=== PATIENT | female | born 1950 | race Caucasian/White ===

== ENCOUNTER 2020-06-23 17:57 | Emergency (ER) | payer MEDICARE ==
[~2020-06-23] VITALS: Ht 157.5 cm; Wt 68.2 kg
[~2020-06-23 17:57] MED LIST: AMIT50TA3 PO; CHOL10006 PO; DULO60CA65 PO; HYDR50TA65 PO; LANS30CA56 PO; LANTUS SUBCUT; METF500T PO; METO25TA6 PO; PRAV40TA65 PO; VALA500T41 PO; VERA180T PO; VITA-268 PO
[2020-06-23 18:56] VITALS: BP 191/118
== END 2020-06-23 19:30 | disposition home or self-care (01) ==
LOC: ER 17:58
DX: K08.89 Other specified disorders of teeth and supporting structures (principal); E11.42 Type 2 diabetes mellitus with diabetic polyneuropathy; E78.00 Pure hypercholesterolemia, unspecified; I10 Essential (primary) hypertension; K21.9 Gastro-esophageal reflux disease without esophagitis; Z98.890 Other specified postprocedural states; Z79.4 Long term (current) use of insulin; Z79.899 Other long term (current) drug therapy
CPT/HCPCS: 41899; 99281; 99284

== ENCOUNTER 2023-05-12 04:42 | Inpatient (IN) | payer MEDICARE ==
[~2023-05-12] VITALS: Ht 148.6 cm; Wt 60.9 kg
[~2023-05-12 04:42] MED LIST changes: +LOP25T PO; -METO25TA6 PO
[2023-05-12 05:19] LABS: BASOPHILS # (AUTO) 0.1 X10'3 (0-0.2); BASOPHILS % (AUTO) 0.8 % (0-1); EOSINOPHILS # (AUTO) 0.2 X10'3 (0-0.9); EOSINOPHILS % (AUTO) 1.9 % (0-6); HEMOGLOBIN 11.6 g/dl (12.0-16.0); LYMPHOCYTES # (AUTO) 1.8 X10'3 (1.1-4.8); LYMPHOCYTES % (AUTO) 17.5 % (21-51); MEAN CORPUSCULAR HEMOGLOBIN 29.9 PG (27.0-31.0); MEAN CORPUSCULAR HGB CONC 33.1 g/dL (33.0-36.5); MEAN CORPUSCULAR VOLUME 90.5 FL (78-98); MEAN PLATELET VOLUME 7.7 FL (7.4-10.4); MONOCYTES # (AUTO) 0.5 X10'3 (0-0.9); MONOCYTES % (AUTO) 5.1 % (2-12); NEUTROPHILS # (AUTO) 7.8 X10'3 (1.8-7.7); NEUTROPHILS % (AUTO) 74.7 % (42-75); PLATELET COUNT 298 X10'3 (140-440); RED BLOOD COUNT 3.86 X10'6 (4.20-5.60); WHITE BLOOD COUNT 10.5 X10'3 (4.5-11.0)
[2023-05-12 05:38] LABS: ALANINE AMINOTRANSFERASE 22 U/L (12-78); ALBUMIN 3.2 G/DL (3.4-5.0); ALKALINE PHOSPHATASE 90 IU/L (46-116); ANION GAP 8 (8-16); ASPARTATE AMINO TRANSFERASE 16 U/L (10-37); BILIRUBIN,TOTAL 0.6 MG/DL (0.1-1.0); BLOOD UREA NITROGEN 25 MG/DL (7-18); CALCIUM 9.3 MG/DL (8.5-10.1); CHLORIDE 99 MMOL/L (99-107); GLUCOSE 114 MG/DL (70-104); POTASSIUM 5.4 MMOL/L (3.5-5.1); SODIUM 136 MMOL/L (135-145); TOTAL CARBON DIOXIDE 29.3 MMOL/L (24-32); TOTAL PROTEIN 6.3 G/DL (6.4-8.2); eCRCL 35 ML/MIN; eGFR 55 ML/MIN
[2023-05-12 05:45] LABS: PRO BRAIN NATRIURETIC PEPTIDE 479 PG/ML (0-125)
[2023-05-12] MEDS ORDERED: normal saline 1000ml 1,000 ML IV ONE (05:50)
[2023-05-12] MEDS ORDERED: iohexol 350MG/ML 100ml bottle IV ONE (06:08)
--- NOTE | 2023-05-12 06:45 | NUR ---
WOUND PICTURES PLACED IN CHART
--- NOTE | 2023-05-12 07:24 | NUR ---
CT CAME TO TAKE PT, PT CONTS TO HAVE LEG SPASMS UNABLE TO HOLD STILL, MD WAS MADE AWARE. MD DECLINED TO ADMIN ANY MEDICATION AT THIS TIME. CT WILL BE DONE LATER TODAY. MADE AWARE.
--- NOTE | 2023-05-12 07:47 | NUR ---
TELE NEURO CONSULT SUBMITTED BY TON STEWART @ 0529 05/12/2023. *BLUE BARB* P V 72 years old [facility] Created By: [facility] Provider: Lauren Roberts Created at 05/12/2023 - 05:28 Accepted at 05/12/2023 - 05:29
[2023-05-12] MEDS ORDERED: LORazepam 2 mg/ml vial IV ONE (08:05)
--- NOTE | 2023-05-12 09:41 | NUR ---
PT TO CT
[2023-05-12] MEDS: MESSAGE TO NURSING IV SCH (09:50)
[2023-05-12] MEDS ORDERED: LORazepam 2 mg/ml vial IV STA (11:09)
--- NOTE | 2023-05-12 11:34 | NUR ---
MRI WILL BE HERE FOR TRANSPORT AT 1230, ATIVAN WILL BE ADMIN @1200
--- NOTE | 2023-05-12 12:16 | NUR ---
PT TO MRI
--- NOTE | 2023-05-12 12:49 | NUR ---
PT RETURNED FROM MRI. PT IS UNASAFE TO HAVE A MRI AT THIS TIME R/T HER MOVEMENT. HAS BEEN NOTIFIED.
--- NOTE | 2023-05-12 13:26 | NUR ---
PIC OF R ELBOW AND L BUTTOCK PLACED IN CHART.
--- NOTE | 2023-05-12 15:14 | NUR ---
PULL-UP PLACED ON PT AND PT PULLED UP IN BED TO SIT MORE UPRIGHT
--- NOTE | 2023-05-12 15:15 | NUR ---
GAVE PT MOUTH WASH, TOOTHBRUSH AND TOOTH PASTE
[2023-05-12] MEDS ORDERED: LORazepam 2 mg/ml vial IV PRN (16:35)
[2023-05-12] MEDS ORDERED: ondansetron/PF 4mg/2ml inj IV PRN (16:35)
[2023-05-12] MEDS ORDERED: morphine 2 MG/ML inj. syringe IV PRN (16:35)
[2023-05-12] MEDS ORDERED: acetaminophen 325mg tablet PO PRN ×2 (16:35)
[2023-05-12] MEDS ORDERED: magnesium hydroxide 30ml (MOM) UD suspension PO PRN (16:35)
[2023-05-12] MEDS ORDERED: mag hydrox/Alum hydrox/simeth 30ml oral suspension PO PRN (16:35)
[2023-05-12] MEDS ORDERED: ATOR40TA72 PO (16:53)
[2023-05-12] MEDS ORDERED: LANS30CA56 PO (16:53)
[2023-05-12] MEDS ORDERED: METO75TA PO (16:53)
[2023-05-12] MEDS ORDERED: VERA360C2 PO (16:53)
[2023-05-12] MEDS ORDERED: LANTUS SQ (16:53)
[2023-05-12] MEDS ORDERED: AMIT-274 PO (16:53)
[2023-05-12] MEDS ORDERED: VALA500T41 PO (16:53)
[2023-05-12] MEDS ORDERED: DULO60CA65 PO (16:54)
[2023-05-12] MEDS ORDERED: HYDR50TA65 PO (16:56)
[2023-05-12] MEDS ORDERED: METF-438 PO (16:56)
[2023-05-12] MEDS ORDERED: LOSA50TA64 PO (16:56)
[2023-05-12] MEDS ORDERED: MAGN200T5 PO (17:00)
[2023-05-12] MEDS ORDERED: VITA-268 PO (17:00)
[2023-05-12] MEDS ORDERED: FERR325T32 PO (17:00)
[2023-05-12] MEDS ORDERED: SPIR25TA5 PO (17:00)
[2023-05-12] MEDS ORDERED: BACL10TA2 PO (17:00)
[2023-05-12] MEDS ORDERED: LACT1CAP65 PO (17:00)
[2023-05-12] MEDS ORDERED: UBID100C16 PO (17:00)
[2023-05-12] MEDS ORDERED: CHOL50004 PO (17:00)
[2023-05-12] MEDS: normal saline 1000ml 1,000 ML IV SCH (17:07)
[2023-05-12 17:23] LABS: CHOLESTEROL 104 MG/DL (0-200); HDL CHOLESTEROL 52 MG/DL (35-60); LDL CHOLESTEROL 42 MG/DL (50-100); PRO BRAIN NATRIURETIC PEPTIDE 961 PG/ML (0-125); TRIGLYCERIDES 66 MG/DL (20-135)
[2023-05-12] MEDS ORDERED: ziprasidone IM 20mg inj **IM only IM ONE (17:30)
[2023-05-12] MEDS ORDERED: DEXTROSE 15 GM of carb/4 tabs (each vial/BOTTLE has 4 tablets) PO PRN ×2 (17:45)
[2023-05-12] MEDS ORDERED: MESSAGE TO PHARMACY PO ONE (17:45)
[2023-05-12] MEDS ORDERED: glucagon, human recombinant 1mg kit SUBCUT PRN (17:45)
[2023-05-12] MEDS ORDERED: dextrose 50%-water 50ml dispensing syringe IV PRN ×2 (17:45)
[2023-05-12] MEDS ORDERED: insulin Lispro (HumaLOG) vial - multi-dose SQ SCH (17:45)
[2023-05-12 18:25] LABS: HEMOGLOBIN A1C 6.5 % (4.5-6.2)
[2023-05-12] MEDS ORDERED: hydrOXYzine 25 MG tablet PO PRN (18:35)
[2023-05-12] MEDS: docusate sod 100mg capsule PO SCH (20:00)
[2023-05-12] MEDS: ferrous sulfate 325mg tablet PO SCH (20:00)
[2023-05-12] MEDS: magnesium oxide 400mg tablet PO SCH (20:00)
[2023-05-12] MEDS ORDERED: GADOTERATE MEGLUMINE 7.5 MMOL/15 ML VIAL IV ONE (20:27)
[2023-05-12] MEDS: baclofen 10mg tablet PO SCH (21:11)
[2023-05-12] MEDS: duloxetine 30mg CAPSULE.DR PO SCH (21:12)
[2023-05-12] MEDS: atorvastatin 20mg tablet PO SCH (21:12)
[2023-05-12] MEDS: amitriptyline 50mg tablet PO SCH (21:12)
[2023-05-12] MEDS: temazepam 15mg capsule PO PRN (22:19)
[2023-05-12] MEDS: insulin glargine (Lantus) pen - multi-dose SQ SCH (22:23)
[2023-05-12 23:00] VITALS: BP 116/73; PULSE 102; RESP 16; TEMP 98.5; O2SAT 93
[2023-05-13 03:00] VITALS: BP 128/78; PULSE 85; RESP 16; TEMP 97.5; O2SAT 97
[2023-05-13] MEDS: normal saline 1000ml 1,000 ML IV SCH ×3 (05:19→22:35)
[2023-05-13 06:00] VITALS: BP 128/78; PULSE 85; RESP 16; TEMP 97.5; O2SAT 97
[2023-05-13 06:09] LABS: BASOPHILS % (AUTO) 0.4 % (0-1); EOSINOPHILS # (AUTO) 0.3 X10'3 (0-0.9); EOSINOPHILS % (AUTO) 2.7 % (0-6); HEMATOCRIT 35.4 % (35.0-45.0); HEMOGLOBIN 11.5 g/dl (12.0-16.0); LYMPHOCYTES # (AUTO) 1.6 X10'3 (1.1-4.8); LYMPHOCYTES % (AUTO) 16.1 % (21-51); MEAN CORPUSCULAR HEMOGLOBIN 30.1 PG (27.0-31.0); MEAN CORPUSCULAR HGB CONC 32.6 g/dL (33.0-36.5); MEAN CORPUSCULAR VOLUME 92.3 FL (78-98); MONOCYTES # (AUTO) 0.8 X10'3 (0-0.9); NEUTROPHILS # (AUTO) 7.3 X10'3 (1.8-7.7); NEUTROPHILS % (AUTO) 72.8 % (42-75); PLATELET COUNT 275 X10'3 (140-440); RED BLOOD COUNT 3.84 X10'6 (4.20-5.60); RED CELL DISTRIBUTION WIDTH 15.7 % (11.5-14.5)
[2023-05-13 06:13] LABS: ALBUMIN 2.9 G/DL (3.4-5.0); ANION GAP 12 (8-16); BLOOD UREA NITROGEN 16 MG/DL (7-18); BUN/CREATININE RATIO 20.3 (10.0-20.0); CALCIUM 8.8 MG/DL (8.5-10.1); CHLORIDE 100 MMOL/L (99-107); CREATININE 0.79 MG/DL (0.40-0.90); GLUCOSE 103 MG/DL (70-104); POTASSIUM 4.7 MMOL/L (3.5-5.1); SODIUM 137 MMOL/L (135-145); TOTAL CARBON DIOXIDE 25.2 MMOL/L (24-32); eCRCL 44 ML/MIN; eGFR 72 ML/MIN
[2023-05-13] MEDS: pantoprazole 40mg Tablet.DR PO SCH (07:58)
[2023-05-13] MEDS: aspirin 81mg, enteric-coated 1 TAB TABLET.DR PO SCH (07:59)
[2023-05-13] MEDS: ferrous sulfate 325mg tablet PO SCH ×2 (07:59→20:00)
[2023-05-13] MEDS: lactobacillus rhamnosus 10,000 MMU CELLS/CAPSULE PO SCH (07:59)
[2023-05-13] MEDS: magnesium oxide 400mg tablet PO SCH ×2 (08:00→20:00)
[2023-05-13] MEDS: vitamin B comp w/Vit. C tab 1 TAB TABLET PO SCH (08:00)
[2023-05-13] MEDS ORDERED: non-formulary drug (Ubidecarenone (Coq-10) 300 MG) PO SCH (08:00)
[2023-05-13] MEDS: docusate sod 100mg capsule PO SCH ×2 (08:00→20:00)
[2023-05-13] MEDS ORDERED: non-formulary drug (Cholecalciferol (Vitamin D3) (Vitamin D3) 1 CAP) PO SCH (08:00)
[2023-05-13] MEDS: baclofen 10mg tablet PO SCH ×3 (08:01→21:00)
[2023-05-13] MEDS: diazepam 5mg tablet PO PRN ×2 (09:35→17:36)
[2023-05-13] MEDS: MESSAGE TO NURSING IV SCH (09:50)
[2023-05-13 10:00] VITALS: BP 136/81; PULSE 95; RESP 16; TEMP 97.9; O2SAT 100
[2023-05-13] MEDS ORDERED: ziprasidone IM 20mg inj **IM only IM ONE (11:15)
--- NOTE | 2023-05-13 11:15 | NUR ---
MESSAGE: deejay [id number] per stroke nurse please review [id number] med rec to restart aspirin and plavix YOON thank you
[2023-05-13] MEDS: morphine 2 MG/ML inj. syringe IV PRN ×2 (11:28→16:18)
--- NOTE | 2023-05-13 12:06 | NUR ---
Noted pt with a low Mike of 11. Per EMR pt with no edema and wound care has been consulted for small wound to coccyx with abrasions to right elbow and left heel, assessment pending at this time. Will continue to follow and make recommendations as appropriate pending [facility] assessment and trends in PO intake. Addendum: 05/13/23 at [address] Amended: Links added.
[2023-05-13] MEDS: HYDROcodone/acetaminophen 5mg/325mg tablet PO PRN ×2 (12:32→17:36)
--- NOTE | 2023-05-13 15:33 | NUR ---
PRESSURE ULCER EDUCATION: DEFINITION: A pressure ulcer is an area of skin that breaks down when you stay in one position too long. The constant pressure against the skin reduces the blood flow to that area and the affected tissue dies. CAUSES: "Being bedridden or in a wheelchair "Fragile skin "Having a chronic condition, such as diabetes or vascular disease "Inability to move certain parts of your body without assistance "Older age "Incontinence of urine or stool SYMPTOMS: "A reddened area that DOES NOT turn white when pressed on - this can be the beginning of a pressure ulcer "A blister, deep sore or a crater - these can be advanced pressure ulcers FIRST AID: "Relieve the pressure on this area "Keep the area clean and dry "Call your primary doctor if you see any of the above symptoms "DO NOT massage the area "DO NOT use a donut shaped or ring shaped pillow- these actually interfere with the blood flow and cause complications PREVENTION: "Check for pressure ulcers everyday "Change position at least every two hours to relieve pressure "Use items that help relieve pressure- pillows, sheepskin, foam padding, and powders. "Keep skin clean and dry "Eat healthy well balanced meals "Exercise daily IF YOU SEE ANY OF THESE SYMPTOMS WHILE IN THE HOSPITAL - TELL YOUR NURSE IMMEDIATELY. IF YOU SEE ANY OF THESE SYMPTOMS WHILE AT HOME OR HAVE ANY QUESTIONS OR CONCERNS ABOUT PRESSURE ULCERS - CALL YOUR PRIMARY DOCTOR IMMEDIATELY. Addendum: 05/13/23 at 1533 by Cassie Gilbert LVN Amended: Links added.
--- NOTE | 2023-05-13 16:39 | NUR ---
upon entering patient's room she told me that she had excruciating left shoulder pain and patient tells me that 'i think it's broken' and that 'i fell prior to my admit' and patient is requesting to have an x-ray of her shoulder, i sent a page to hospitalist asking for an x-ray, no new orders at this time
[2023-05-13 18:00] VITALS: BP 133/92; PULSE 107; RESP 16; TEMP 98.7; O2SAT 95
--- NOTE | 2023-05-13 18:00 | NUR ---
Patient in room ORTHO 4024. I have received report from ALICIA Kumari and had the opportunity to ask questions and assume patient care.
--- NOTE | 2023-05-13 18:19 | NUR ---
Gave patient report to ALICIA Duenas.
--- NOTE | 2023-05-13 18:51 | NUR ---
Pt. back to floor from MRI. Pt. back in bed.
[2023-05-13] MEDS ORDERED: GADOTERATE MEGLUMINE 7.5 MMOL/15 ML VIAL IV ONE (18:56)
--- NOTE | 2023-05-13 19:15 | NUR ---
pt. medicated for procedure and is still very sleepy. Addendum: 05/13/23 at 1916 by Yulissa Waite RN Amended: Links added.
[2023-05-13] MEDS: atorvastatin 20mg tablet PO SCH (21:00)
[2023-05-13] MEDS: duloxetine 30mg CAPSULE.DR PO SCH (21:00)
[2023-05-13] MEDS: amitriptyline 50mg tablet PO SCH (21:00)
[2023-05-13] MEDS: insulin glargine (Lantus) pen - multi-dose SQ SCH (21:00)
[2023-05-13 22:00] VITALS: BP 147/80; PULSE 106; RESP 18; TEMP 98; O2SAT 97
[2023-05-14] MEDS: diazepam 5mg tablet PO PRN ×2 (04:35→17:39)
[2023-05-14] MEDS: HYDROcodone/acetaminophen 5mg/325mg tablet PO PRN ×4 (04:35→20:29)
--- NOTE | 2023-05-14 04:43 | NUR ---
call from tele box HR in 130's. repositioned pt and medicated for pain. will continue to monitor.
[2023-05-14 06:00] VITALS: BP_SYST 146; BP_SYST 162; BP_DIAS 101; BP_DIAS 88; PULSE 125; PULSE 128; RESP 16; RESP 18; TEMP 98.3; TEMP 99; O2SAT 97; O2SAT 98
--- NOTE | 2023-05-14 06:18 | NUR ---
Problems reprioritized. Patient report given, questions answered & plan of care reviewed with ALICIA Mckeon.
--- NOTE | 2023-05-14 06:32 | NUR ---
Patient in room ORTHO 4024. I have received report from ALICIA Duenas and had the opportunity to ask questions and assume patient care.
[2023-05-14] MEDS: pantoprazole 40mg Tablet.DR PO SCH (07:18)
[2023-05-14] MEDS: lactobacillus rhamnosus 10,000 MMU CELLS/CAPSULE PO SCH (07:19)
[2023-05-14] MEDS: aspirin 81mg, enteric-coated 1 TAB TABLET.DR PO SCH (07:19)
[2023-05-14] MEDS: ferrous sulfate 325mg tablet PO SCH ×2 (07:19→20:29)
[2023-05-14] MEDS: vitamin B comp w/Vit. C tab 1 TAB TABLET PO SCH (07:20)
[2023-05-14] MEDS: baclofen 10mg tablet PO SCH ×3 (07:20→20:28)
[2023-05-14] MEDS: magnesium oxide 400mg tablet PO SCH ×2 (07:21→20:29)
[2023-05-14 07:22] LABS: BASOPHILS % (AUTO) 0.2 % (0-1); EOSINOPHILS # (AUTO) 0.2 X10'3 (0-0.9); EOSINOPHILS % (AUTO) 2.1 % (0-6); HEMATOCRIT 36.1 % (35.0-45.0); HEMOGLOBIN 11.8 g/dl (12.0-16.0); LYMPHOCYTES # (AUTO) 1.2 X10'3 (1.1-4.8); LYMPHOCYTES % (AUTO) 11.1 % (21-51); MEAN CORPUSCULAR HEMOGLOBIN 30.1 PG (27.0-31.0); MEAN CORPUSCULAR HGB CONC 32.8 g/dL (33.0-36.5); MEAN CORPUSCULAR VOLUME 91.8 FL (78-98); MONOCYTES % (AUTO) 9.5 % (2-12); NEUTROPHILS # (AUTO) 8.5 X10'3 (1.8-7.7); NEUTROPHILS % (AUTO) 77.1 % (42-75); PLATELET COUNT 283 X10'3 (140-440); RED BLOOD COUNT 3.93 X10'6 (4.20-5.60); RED CELL DISTRIBUTION WIDTH 15.2 % (11.5-14.5)
[2023-05-14] MEDS: morphine 2 MG/ML inj. syringe IV PRN ×4 (07:23→23:18)
[2023-05-14] MEDS: docusate sod 100mg capsule PO SCH ×2 (07:26→20:00)
[2023-05-14 07:28] LABS: ALBUMIN 2.7 G/DL (3.4-5.0); ANION GAP 9 (8-16); BLOOD UREA NITROGEN 9 MG/DL (7-18); CALCIUM 8.3 MG/DL (8.5-10.1); CHLORIDE 100 MMOL/L (99-107); CREATININE 0.75 MG/DL (0.40-0.90); GLUCOSE 126 MG/DL (70-104); POTASSIUM 4.6 MMOL/L (3.5-5.1); SODIUM 134 MMOL/L (135-145); TOTAL CARBON DIOXIDE 24.8 MMOL/L (24-32); eCRCL 46 ML/MIN; eGFR 76 ML/MIN
[2023-05-14] MEDS: normal saline 1000ml 1,000 ML IV SCH (08:35)
--- NOTE | 2023-05-14 09:54 | NUR ---
Page Sent PAGER ID: [phone] MESSAGE: [id number] Joyce, pt HR has went up to the 160 and pt is just laying down i did give pain meds. has not been sustaining but all over the place with HR per telesales specialist. sly [id number]
[2023-05-14 10:00] VITALS: BP 146/88; PULSE 125; RESP 18; TEMP 98.3; O2SAT 98
[2023-05-14] MEDS ORDERED: LidoCAINE 2% Topical Jelly 11mL syringe TOP ONE (10:00)
--- NOTE | 2023-05-14 10:06 | NUR ---
Page Sent promotional table spacer PAGER ID: [phone] MESSAGE: [id number] b [facility] was read and report in there to review per radiology. sly
--- NOTE | 2023-05-14 15:06 | NUR ---
F/u: Pt seen by wound care, per note pt with an unstageable PI to left heel and a DTI to coccyx complicated by MASD. Noted pt has been eating poorly on regular diet. Pt seen at bedside with SO and sister present. RD encouraged PO intake with emphasis on protein, pt verbalized understanding. Food preferences were obtained and d/w dietary, see below. Patient's sister states they have been helping feed pt and no texture modification is required for additional assistance. Pt endorses a good appetite and denies food allergies or difficulty chewing/swallowing. LBM 8/6 per EMR, confirmed by pt though pt denies feeling constipated. Per EMR pt has been refusing routine Colace. Pt states she takes magnesium at home and her BMs remain regular. RD informed pt of PRN MoM that's currently available. Pt declines nutrition intervention to assist with a BM. RD contact information provided and pt/family encouraged to reach out if needed. Noted PO intake improved today, documented with 75% PO intake of breakfast and lunch. Will continue to follow. Recommendations: 1) Continue regular diet 2) [place] food preferences: yogurt WB, cottage cheese WL, chocolate/vanilla shake BIDLD; pt dislikes mushrooms 3) Assist with meals- family assisting at this time 4) Routine bowel care 5) Scaled weight this admit; subsequent weekly scaled weights Addendum: 05/14/23 at [address] Amended: Links added.
--- NOTE | 2023-05-14 15:11 | NUR ---
F/u: Pt seen by wound care, per note pt with an unstageable PI to left heel and a DTI to coccyx complicated by MASD. Noted pt has been eating poorly on regular diet. Pt seen at bedside with SO and sister present. RD encouraged PO intake with emphasis on protein, pt verbalized understanding. Pt states as of recently she hasn't been into eating meat however pt declines diet change to vegetarian or removal of meat on meal trays. Food preferences were obtained and d/w dietary, see below. Patient's sister states they have been helping feed pt and no texture modification is required for additional assistance. Pt endorses a good appetite and denies food allergies or difficulty chewing/swallowing. LBM 8/6 per EMR, confirmed by pt though pt denies feeling constipated. Per EMR pt has been refusing routine Colace. Pt states she takes magnesium at home and her BMs remain regular. RD informed pt of PRN MoM that's currently available. Pt declines nutrition intervention to assist with a BM. RD contact information provided and pt/family encouraged to reach out if needed. Noted PO intake improved today, documented with 75% PO intake of breakfast and lunch. Will continue to follow. Recommendations: 1) Continue regular diet 2) [place] food preferences: yogurt WB, cottage cheese WL, chocolate/vanilla shake BIDLD; pt dislikes mushrooms 3) Assist with meals- family assisting at this time 4) Routine bowel care 5) Scaled weight this admit; subsequent weekly scaled weights Addendum: 05/14/23 at [address] Amended: Links added.
[2023-05-14 15:55] VITALS: RESP 18; O2SAT 98
--- NOTE | 2023-05-14 17:52 | NUR ---
rn school: I have reviewed and agree with all interventions, assessments performed and documented by deejay candelario rn.
[2023-05-14 18:00] VITALS: BP 182/92; PULSE 110; RESP 16; TEMP 99.2; O2SAT 98
--- NOTE | 2023-05-14 18:40 | NUR ---
Problems reprioritized. Patient report given, questions answered & plan of care reviewed with ALICIA Duenas.
--- NOTE | 2023-05-14 18:44 | NUR ---
Patient in room ORTHO 4024. I have received report from ALICIA Mckeon and had the opportunity to ask questions and assume patient care.
[2023-05-14 18:46] VITALS: BP 182/92; PULSE 110; RESP 16; TEMP 99.2; O2SAT 98
[2023-05-14] MEDS: atorvastatin 20mg tablet PO SCH (20:28)
[2023-05-14] MEDS: duloxetine 30mg CAPSULE.DR PO SCH (20:29)
[2023-05-14] MEDS: amitriptyline 50mg tablet PO SCH (20:29)
[2023-05-14] MEDS: insulin glargine (Lantus) pen - multi-dose SQ SCH (20:46)
[2023-05-14] MEDS ORDERED: nystatin 15 GM powder TP SCH (21:00)
[2023-05-14 22:00] VITALS: BP 154/90; PULSE 111; RESP 15; TEMP 98.3; O2SAT 99
[2023-05-14] MEDS: temazepam 15mg capsule PO PRN (23:18)
--- NOTE | 2023-05-15 01:30 | NUR ---
REACH here to pick pt. up to transport to [facility]. pt. in stable condition for transport. all belongings sent with pt. all paperwork faxed and report given to receiving facility. notified esequiel of pts discharge destination.
--- NOTE | 2023-05-15 01:38 | NUR ---
notified that pt was picked up by transportation to be taken to [facility].
== END 2023-05-15 01:30 | disposition critical access hospital (66) | DRG 552 ==
LOC: ER 04:43 → ED HOLD 16:39 → ORTHO 4S 22:45
PROVIDERS: ADMIT Internal Medicine; ATTEND Internal Medicine
PROC: B3251ZZ Computerized Tomography (CT Scan) of Bilateral Common Carotid Arteries using Low Osmolar Contrast (ICD-10-PCS; principal; 2023-05-12)
PROC: B3201ZZ Computerized Tomography (CT Scan) of Thoracic Aorta using Low Osmolar Contrast (ICD-10-PCS; 2023-05-12)
PROC: B32R1ZZ Computerized Tomography (CT Scan) of Intracranial Arteries using Low Osmolar Contrast (ICD-10-PCS; 2023-05-12)
PROC: B3281ZZ Computerized Tomography (CT Scan) of Bilateral Internal Carotid Arteries using Low Osmolar Contrast (ICD-10-PCS; 2023-05-12)
DX: M48.02 Spinal stenosis, cervical region (principal); G95.20 Unspecified cord compression; G95.89 Other specified diseases of spinal cord; E11.42 Type 2 diabetes mellitus with diabetic polyneuropathy; I10 Essential (primary) hypertension; G47.00 Insomnia, unspecified; K21.9 Gastro-esophageal reflux disease without esophagitis; Z20.822 Contact with and (suspected) exposure to COVID-19; E78.00 Pure hypercholesterolemia, unspecified; Z82.49 Family history of ischemic heart disease and other diseases of the circulatory system; Z88.8 Allergy status to other drugs, medicaments and biological substances; Z79.899 Other long term (current) drug therapy; Z79.4 Long term (current) use of insulin; Z83.3 Family history of diabetes mellitus
CPT/HCPCS: 36415; 70450; 70496; 70498; 70553; 71045; 72141; 72156; 80048; 80053; 80061; 82948; 83036; 83735; 83880; 84484; 85025; 85651; 87081; 87811; 93005; 93306; 97162; 99285; A4314; A4615; A5200; A6212; A6213; A6223; A6258; A6449; A9575; G0378; J1815; J2060; J2270; J3486; J3490; J7030; Q9967

== ENCOUNTER 2023-05-21 14:51 | Inpatient (IN) | payer MEDICARE ==
[~2023-05-21] VITALS: Ht 147.3 cm; Wt 69.4 kg
[~2023-05-21 14:51] MED LIST changes: +AMIT-274 PO; -AMIT50TA3 PO; +ATOR40TA72 PO; +BACL10TA2 PO; -CHOL10006 PO; +CHOL50004 PO; +FERR325T32 PO; +LACT1CAP65 PO; +LANTUS SQ; -LANTUS SUBCUT; -LOP25T PO; +LOSA50TA64 PO; +MAGN200T5 PO; +METF-438 PO; -METF500T PO; +METO75TA PO; -PRAV40TA65 PO; +SPIR25TA5 PO; +UBID100C16 PO; -VERA180T PO; +VERA360C2 PO
[2023-05-21 17:00] VITALS: BP 173/94; PULSE 72; RESP 15; TEMP 98; O2SAT 95
[2023-05-21] MEDS ORDERED: temazepam 15mg capsule PO PRN (21:00)
[2023-05-21 22:00] VITALS: BP 173/105; PULSE 92; RESP 20; TEMP 98.5; O2SAT 96
[2023-05-21] MEDS ORDERED: diphenhydrAMINE 25mg capsule PO PRN (22:10)
[2023-05-21] MEDS ORDERED: morphine 2 MG/ML inj. syringe IV PRN ×2 (22:10)
[2023-05-21] MEDS ORDERED: acetaminophen 325mg tablet PO PRN (22:10)
[2023-05-21] MEDS ORDERED: HYDROcodone/acetaminophen 5mg/325mg tablet PO PRN (22:10)
[2023-05-21] MEDS ORDERED: ondansetron/PF 4mg/2ml inj IV PRN (22:10)
[2023-05-21] MEDS ORDERED: ondansetron 4mg rapidly disintigrating tab PO PRN (22:10)
[2023-05-21] MEDS ORDERED: bisacodyl 10mg suppository rectal RC PRN (22:10)
[2023-05-21] MEDS ORDERED: mag hydrox/Alum hydrox/simeth 30ml oral suspension PO PRN (22:10)
[2023-05-21] MEDS ORDERED: magnesium hydroxide 30ml (MOM) UD suspension PO PRN (22:10)
[2023-05-21] MEDS ORDERED: diphenhydrAMINE 50 mg/ml inj IV PRN (22:10)
[2023-05-21] MEDS ORDERED: dextrose 50%-water 50ml dispensing syringe IV PRN ×2 (22:15)
[2023-05-21] MEDS ORDERED: glucagon, human recombinant 1mg kit SUBCUT PRN (22:15)
[2023-05-21] MEDS ORDERED: insulin Lispro (HumaLOG) vial - multi-dose SQ SCH (22:15)
[2023-05-21] MEDS ORDERED: MESSAGE TO PHARMACY PO ONE (22:15)
[2023-05-21] MEDS ORDERED: DEXTROSE 15 GM of carb/4 tabs (each vial/BOTTLE has 4 tablets) PO PRN ×2 (22:15)
[2023-05-21] MEDS: normal saline 1000ml 1,000 ML IV SCH (22:45)
[2023-05-21] MEDS: hydrALAZINE 20mg/ml inj. IV PRN (22:56)
[2023-05-21] MEDS: morphine 2 MG/ML inj. syringe IV PRN (23:01)
[2023-05-21 23:05] LABS: APTT 32 SECONDS (22-32)
[2023-05-21 23:14] LABS: MAGNESIUM 1.8 MG/DL (1.5-2.4); PHOSPHORUS 4.5 MG/DL (2.3-4.5)
[2023-05-21] MEDS: ondansetron/PF 4mg/2ml inj IV PRN (23:26)
[2023-05-22] MEDS: HYDROcodone/acetaminophen 10/325mg tab PO PRN ×2 (04:46→11:03)
[2023-05-22 06:30] VITALS: BP 148/91; PULSE 103; RESP 15; TEMP 98.1; O2SAT 95
--- NOTE | 2023-05-22 06:30 | NUR ---
Patient in room ORTHO 4015. I have received report from Leda and had the opportunity to ask questions and assume patient care.
[2023-05-22 07:02] LABS: BASOPHILS % (AUTO) 0.4 % (0-1); EOSINOPHILS # (AUTO) 0.1 X10'3 (0-0.9); EOSINOPHILS % (AUTO) 1.2 % (0-6); HEMATOCRIT 35.2 % (35.0-45.0); HEMOGLOBIN 11.5 g/dl (12.0-16.0); LYMPHOCYTES # (AUTO) 2.2 X10'3 (1.1-4.8); LYMPHOCYTES % (AUTO) 19.3 % (21-51); MEAN CORPUSCULAR HEMOGLOBIN 29.4 PG (27.0-31.0); MEAN CORPUSCULAR HGB CONC 32.7 g/dL (33.0-36.5); MEAN CORPUSCULAR VOLUME 90.2 FL (78-98); MEAN PLATELET VOLUME 7.3 FL (7.4-10.4); MONOCYTES # (AUTO) 0.8 X10'3 (0-0.9); NEUTROPHILS # (AUTO) 8.1 X10'3 (1.8-7.7); NEUTROPHILS % (AUTO) 72.1 % (42-75); PLATELET COUNT 572 X10'3 (140-440); RED BLOOD COUNT 3.91 X10'6 (4.20-5.60); RED CELL DISTRIBUTION WIDTH 14.3 % (11.5-14.5); WHITE BLOOD COUNT 11.2 X10'3 (4.5-11.0)
[2023-05-22 07:19] LABS: ALANINE AMINOTRANSFERASE 42 U/L (12-78); ALBUMIN 2.1 G/DL (3.4-5.0); ALBUMIN/GLOBULIN RATIO 0.5 (1.1-1.5); ALKALINE PHOSPHATASE 124 IU/L (46-116); ANION GAP 14 (8-16); ASPARTATE AMINO TRANSFERASE 26 U/L (10-37); BILIRUBIN,TOTAL 0.4 MG/DL (0.1-1.0); BLOOD UREA NITROGEN 12 MG/DL (7-18); BUN/CREATININE RATIO 25.5 (10.0-20.0); CALCIUM 8.5 MG/DL (8.5-10.1); CHLORIDE 93 MMOL/L (99-107); CREATININE 0.47 MG/DL (0.40-0.90); GLUCOSE 102 MG/DL (70-104); POTASSIUM 4.4 MMOL/L (3.5-5.1); SODIUM 130 MMOL/L (135-145); TOTAL CARBON DIOXIDE 23.4 MMOL/L (24-32); TOTAL PROTEIN 6.3 G/DL (6.4-8.2); eGFR > 90 ML/MIN
[2023-05-22] MEDS: docusate sod 100mg capsule PO SCH ×2 (07:33→19:35)
[2023-05-22] MEDS: heparin, porcine 5000 units/ml vial SQ SCH ×2 (07:34→19:35)
[2023-05-22] MEDS: morphine 2 MG/ML inj. syringe IV PRN ×3 (07:34→16:25)
[2023-05-22 08:00] VITALS: RESP 18; O2SAT 99
[2023-05-22] MEDS: normal saline 1000ml 1,000 ML IV SCH ×2 (08:10→18:19)
[2023-05-22 10:00] VITALS: BP 147/92; PULSE 108; RESP 18; TEMP 98; O2SAT 98
[2023-05-22] MEDS: ondansetron/PF 4mg/2ml inj IV PRN ×2 (11:04→19:36)
--- NOTE | 2023-05-22 15:41 | NUR ---
PAGER ID: [phone] MESSAGE: Carline Jefferson [id number]. Stephanie [id number] Pt having muscle spasms. Takes Baclofen 10mg TID at home. Pt would like to restart baclofen or have something to help spasms.
[2023-05-22 18:00] VITALS: BP 167/102; PULSE 118; RESP 18; TEMP 98.2; O2SAT 96
--- NOTE | 2023-05-22 18:15 | NUR ---
Patient in room ORTHO 4015. I have received report from ALICIA Brown and had the opportunity to ask questions and assume patient care.
--- NOTE | 2023-05-22 18:15 | NUR ---
Problems reprioritized. Patient report given, questions answered & plan of care reviewed with
[2023-05-22 20:10] VITALS: RESP 18; O2SAT 96
[2023-05-22] MEDS: insulin glargine (Lantus) pen - multi-dose SQ SCH (21:00)
[2023-05-22 22:00] VITALS: BP 184/101; PULSE 107; RESP 16; TEMP 98.3; O2SAT 98
[2023-05-22] MEDS: baclofen 10mg tablet PO SCH (22:09)
[2023-05-22] MEDS: acetaminophen 325mg tablet PO PRN (22:10)
[2023-05-22] MEDS: hydrALAZINE 20mg/ml inj. IV PRN (23:21)
[2023-05-23 01:15] VITALS: BP 146/81; PULSE 101
[2023-05-23] MEDS: normal saline 1000ml 1,000 ML IV SCH ×3 (04:10→21:31)
[2023-05-23 06:33] VITALS: BP 151/82; PULSE 104; RESP 16; TEMP 97.5; O2SAT 99
--- NOTE | 2023-05-23 07:07 | NUR ---
Problems reprioritized. Patient report given, questions answered & plan of care reviewed with ALICIA Brown.
[2023-05-23 08:00] VITALS: RESP 18; O2SAT 99
[2023-05-23 08:17] LABS: BASOPHILS # (AUTO) 0.1 X10'3 (0-0.2); LYMPHOCYTES # (AUTO) 2.9 X10'3 (1.1-4.8); WHITE BLOOD COUNT 13.2 X10'3 (4.5-11.0)
[2023-05-23 08:18] LABS: BASOPHILS % (AUTO) 0.6 % (0-1); EOSINOPHILS # (AUTO) 0.3 X10'3 (0-0.9); EOSINOPHILS % (AUTO) 2.6 % (0-6); HEMATOCRIT 35.6 % (35.0-45.0); HEMOGLOBIN 11.8 g/dl (12.0-16.0); MEAN CORPUSCULAR HEMOGLOBIN 29.7 PG (27.0-31.0); MEAN CORPUSCULAR VOLUME 89.8 FL (78-98); MEAN PLATELET VOLUME 7.4 FL (7.4-10.4); MONOCYTES # (AUTO) 1.2 X10'3 (0-0.9); NEUTROPHILS # (AUTO) 8.7 X10'3 (1.8-7.7); NEUTROPHILS % (AUTO) 65.8 % (42-75); PLATELET COUNT 619 X10'3 (140-440); RED BLOOD COUNT 3.96 X10'6 (4.20-5.60); RED CELL DISTRIBUTION WIDTH 14.4 % (11.5-14.5)
[2023-05-23] MEDS: docusate sod 100mg capsule PO SCH ×2 (08:48→20:32)
[2023-05-23] MEDS: baclofen 10mg tablet PO SCH ×2 (08:48→15:55)
[2023-05-23] MEDS: heparin, porcine 5000 units/ml vial SQ SCH ×2 (08:49→20:32)
[2023-05-23 08:54] LABS: ALANINE AMINOTRANSFERASE 53 U/L (12-78); ALBUMIN 2.2 G/DL (3.4-5.0); ALBUMIN/GLOBULIN RATIO 0.5 (1.1-1.5); ALKALINE PHOSPHATASE 127 IU/L (46-116); ANION GAP 14 (8-16); ASPARTATE AMINO TRANSFERASE 44 U/L (10-37); BILIRUBIN,TOTAL 0.4 MG/DL (0.1-1.0); BLOOD UREA NITROGEN 7 MG/DL (7-18); BUN/CREATININE RATIO 15.9 (10.0-20.0); CALCIUM 8.5 MG/DL (8.5-10.1); CHLORIDE 94 MMOL/L (99-107); CREATININE 0.44 MG/DL (0.40-0.90); GLUCOSE 104 MG/DL (70-104); POTASSIUM 4.2 MMOL/L (3.5-5.1); SODIUM 132 MMOL/L (135-145); TOTAL CARBON DIOXIDE 23.6 MMOL/L (24-32); TOTAL PROTEIN 6.3 G/DL (6.4-8.2); eCRCL 77 ML/MIN; eGFR > 90 ML/MIN
[2023-05-23] MEDS: morphine 2 MG/ML inj. syringe IV PRN ×2 (08:57→15:56)
[2023-05-23 10:16] VITALS: BP 171/97; PULSE 108; RESP 18; TEMP 96.9; O2SAT 92
[2023-05-23] MEDS: acetaminophen 325mg tablet PO PRN (11:51)
[2023-05-23 18:00] VITALS: BP 162/94; PULSE 105; RESP 16; TEMP 98; O2SAT 92
--- NOTE | 2023-05-23 18:15 | NUR ---
Patient in room ORTHO 4015. I have received report from ALICIA LEUNG and had the opportunity to ask questions and assume patient care.
[2023-05-23] MEDS: insulin glargine (Lantus) pen - multi-dose SQ SCH (21:00)
[2023-05-23] MEDS: HYDROcodone/acetaminophen 10/325mg tab PO PRN (21:31)
[2023-05-23 22:00] VITALS: BP 174/105; PULSE 117; RESP 17; TEMP 97.4; O2SAT 98
[2023-05-23] MEDS: hydrALAZINE 20mg/ml inj. IV PRN (22:16)
[2023-05-24] MEDS: baclofen 10mg tablet PO SCH ×4 (00:20→23:28)
[2023-05-24] MEDS: hydrALAZINE 20mg/ml inj. IV PRN ×2 (05:13→17:32)
[2023-05-24 06:34] LABS: EOSINOPHILS # (AUTO) 0.1 X10'3 (0-0.9); EOSINOPHILS % (AUTO) 0.8 % (0-6); HEMOGLOBIN 11.4 g/dl (12.0-16.0); MONOCYTES # (AUTO) 1.2 X10'3 (0-0.9)
--- NOTE | 2023-05-24 06:37 | NUR ---
Patient in room ORTHO 4015. I have received report from BRET VARGAS and had the opportunity to ask questions and assume patient care.
[2023-05-24 06:39] LABS: BASOPHILS # (AUTO) 0.1 X10'3 (0-0.2); BASOPHILS % (AUTO) 0.4 % (0-1); HEMATOCRIT 34.1 % (35.0-45.0); LYMPHOCYTES # (AUTO) 2.3 X10'3 (1.1-4.8); LYMPHOCYTES % (AUTO) 15.3 % (21-51); MEAN CORPUSCULAR HEMOGLOBIN 29.7 PG (27.0-31.0); MEAN CORPUSCULAR HGB CONC 33.5 g/dL (33.0-36.5); MEAN CORPUSCULAR VOLUME 88.7 FL (78-98); MONOCYTES % (AUTO) 7.9 % (2-12); NEUTROPHILS # (AUTO) 11.3 X10'3 (1.8-7.7); NEUTROPHILS % (AUTO) 75.6 % (42-75); PLATELET COUNT 653 X10'3 (140-440); RED BLOOD COUNT 3.85 X10'6 (4.20-5.60); RED CELL DISTRIBUTION WIDTH 14.5 % (11.5-14.5)
[2023-05-24 06:45] VITALS: BP 170/90; PULSE 110; RESP 16; TEMP 97.5; O2SAT 98
--- NOTE | 2023-05-24 06:50 | NUR ---
Problems reprioritized. Patient report given, questions answered & plan of care reviewed with ALICIA JOHNSON.
[2023-05-24 06:51] LABS: ALANINE AMINOTRANSFERASE 55 U/L (12-78); ALBUMIN 2.2 G/DL (3.4-5.0); ALBUMIN/GLOBULIN RATIO 0.5 (1.1-1.5); ALKALINE PHOSPHATASE 121 IU/L (46-116); ANION GAP 9 (8-16); ASPARTATE AMINO TRANSFERASE 34 U/L (10-37); BILIRUBIN,TOTAL 0.3 MG/DL (0.1-1.0); BLOOD UREA NITROGEN 5 MG/DL (7-18); BUN/CREATININE RATIO 13.5 (10.0-20.0); CALCIUM 8.5 MG/DL (8.5-10.1); CHLORIDE 94 MMOL/L (99-107); CREATININE 0.37 MG/DL (0.40-0.90); GLUCOSE 147 MG/DL (70-104); SODIUM 126 MMOL/L (135-145); TOTAL CARBON DIOXIDE 23.3 MMOL/L (24-32); TOTAL PROTEIN 6.3 G/DL (6.4-8.2); eCRCL 91 ML/MIN; eGFR > 90 ML/MIN
[2023-05-24] MEDS: heparin, porcine 5000 units/ml vial SQ SCH ×2 (07:59→21:36)
[2023-05-24] MEDS: docusate sod 100mg capsule PO SCH ×2 (07:59→21:23)
[2023-05-24] MEDS: normal saline 1000ml 1,000 ML IV SCH ×2 (07:59→17:31)
[2023-05-24] MEDS: morphine 2 MG/ML inj. syringe IV PRN ×2 (08:01→19:00)
[2023-05-24] MEDS: acetaminophen 325mg tablet PO PRN (08:31)
[2023-05-24] MEDS: ondansetron/PF 4mg/2ml inj IV PRN (09:03)
[2023-05-24 10:29] VITALS: RESP 16; O2SAT 98
[2023-05-24] MEDS: HYDROcodone/acetaminophen 10/325mg tab PO PRN ×3 (13:12→21:31)
--- NOTE | 2023-05-24 13:47 | NUR ---
PAGER ID: [phone] MESSAGE: ALICIA JOHNSON, ORTHO, [id number]. RE: [id number]. PT. HAS BACLOFEN Q8H. PT. HOPING TO HAVE IT SOONER. AND PT. DISCAHRGE PACKET FROM [facility] IN PT. FILE.
--- NOTE | 2023-05-24 17:42 | NUR ---
PAGER ID: [phone] MESSAGE: ALICIA JOHNSON, ORTHO, 2276. RE: [id number]. PT. BP 182/107, HR- 102. GAVE HYDRALAZINE PRN. CAMMIEI. THANKS
[2023-05-24 18:00] VITALS: BP 166/72; PULSE 105; RESP 15; TEMP 96.7; O2SAT 99
[2023-05-24] MEDS ORDERED: hydrOXYzine 25 MG tablet PO PRN (18:00)
--- NOTE | 2023-05-24 18:30 | NUR ---
Problems reprioritized. Patient report given TO PRUDENCE RN, questions answered & plan of care reviewed with .
--- NOTE | 2023-05-24 19:25 | NUR ---
Patient in room ORTHO 4015. I have received report from ALEX VARGAS and had the opportunity to ask questions and assume patient care.
[2023-05-24 20:00] VITALS: RESP 15; O2SAT 99
[2023-05-24] MEDS ORDERED: valacyclovir 500mg tablet PO SCH (21:00)
[2023-05-24] MEDS ORDERED: atorvastatin 20mg tablet PO SCH (21:00)
[2023-05-24] MEDS ORDERED: losartan 50mg tablet PO SCH (21:00)
[2023-05-24] MEDS: insulin glargine (Lantus) pen - multi-dose SQ SCH (21:00)
[2023-05-24] MEDS ORDERED: insulin glargine (Lantus) pen - multi-dose SQ SCH (21:00)
[2023-05-24] MEDS ORDERED: duloxetine 30mg CAPSULE.DR PO SCH (21:00)
[2023-05-24] MEDS ORDERED: baclofen 10mg tablet PO SCH (21:00)
[2023-05-24] MEDS ORDERED: amitriptyline 50mg tablet PO SCH (21:00)
[2023-05-24] MEDS: metoprolol tartrate 25mg tablet PO SCH (21:21)
[2023-05-24] MEDS: magnesium oxide 400mg tablet PO SCH (21:23)
[2023-05-24] MEDS: ferrous sulfate 325mg tablet PO SCH (21:23)
[2023-05-24] MEDS: spironolactone 25 MG tablet PO SCH (21:23)
[2023-05-24] MEDS: metFORMIN 500mg tablet PO SCH (21:24)
[2023-05-24 22:00] VITALS: BP 162/96; PULSE 95; RESP 14; TEMP 97.7; O2SAT 100
[2023-05-25] MEDS: normal saline 1000ml 1,000 ML IV SCH (02:51)
[2023-05-25] MEDS: morphine 2 MG/ML inj. syringe IV PRN (04:48)
--- NOTE | 2023-05-25 06:17 | NUR ---
Received report from Bhavana VARGAS
[2023-05-25 06:19] LABS: ALANINE AMINOTRANSFERASE 49 U/L (12-78); ALBUMIN 2.2 G/DL (3.4-5.0); ALBUMIN/GLOBULIN RATIO 0.6 (1.1-1.5); ALKALINE PHOSPHATASE 119 IU/L (46-116); ANION GAP 8 (8-16); ASPARTATE AMINO TRANSFERASE 30 U/L (10-37); BILIRUBIN,TOTAL 0.3 MG/DL (0.1-1.0); BLOOD UREA NITROGEN 7 MG/DL (7-18); BUN/CREATININE RATIO 14.9 (10.0-20.0); CALCIUM 8.7 MG/DL (8.5-10.1); CHLORIDE 95 MMOL/L (99-107); CREATININE 0.47 MG/DL (0.40-0.90); GLUCOSE 120 MG/DL (70-104); SODIUM 128 MMOL/L (135-145); TOTAL CARBON DIOXIDE 25.1 MMOL/L (24-32); TOTAL PROTEIN 6.2 G/DL (6.4-8.2); eCRCL 72 ML/MIN; eGFR > 90 ML/MIN
[2023-05-25 06:20] LABS: BASOPHILS # (AUTO) 0.1 X10'3 (0-0.2); EOSINOPHILS # (AUTO) 0.3 X10'3 (0-0.9); MEAN CORPUSCULAR HEMOGLOBIN 30.1 PG (27.0-31.0); MEAN CORPUSCULAR HGB CONC 33.4 g/dL (33.0-36.5); MEAN PLATELET VOLUME 7.1 FL (7.4-10.4); RED CELL DISTRIBUTION WIDTH 14.8 % (11.5-14.5)
[2023-05-25 06:22] LABS: BASOPHILS % (AUTO) 0.7 % (0-1); EOSINOPHILS % (AUTO) 2.3 % (0-6); HEMATOCRIT 36.3 % (35.0-45.0); HEMOGLOBIN 12.2 g/dl (12.0-16.0); LYMPHOCYTES % (AUTO) 22.2 % (21-51); MONOCYTES # (AUTO) 1.3 X10'3 (0-0.9); MONOCYTES % (AUTO) 9.6 % (2-12); NEUTROPHILS # (AUTO) 8.7 X10'3 (1.8-7.7); NEUTROPHILS % (AUTO) 65.2 % (42-75); PLATELET COUNT 627 X10'3 (140-440); RED BLOOD COUNT 4.04 X10'6 (4.20-5.60); WHITE BLOOD COUNT 13.3 X10'3 (4.5-11.0)
--- NOTE | 2023-05-25 06:23 | NUR ---
Problems reprioritized. Patient report given, questions answered & plan of care reviewed with JENNIFER VARGAS.
[2023-05-25 06:30] VITALS: BP 181/103; PULSE 96; RESP 16; TEMP 97.5; O2SAT 98
[2023-05-25] MEDS: docusate sod 100mg capsule PO SCH (07:45)
[2023-05-25] MEDS: ferrous sulfate 325mg tablet PO SCH (07:45)
[2023-05-25] MEDS: magnesium oxide 400mg tablet PO SCH (07:45)
[2023-05-25] MEDS: baclofen 10mg tablet PO SCH (07:45)
[2023-05-25] MEDS: metFORMIN 500mg tablet PO SCH (07:45)
[2023-05-25] MEDS: metoprolol tartrate 25mg tablet PO SCH (07:47)
[2023-05-25] MEDS: heparin, porcine 5000 units/ml vial SQ SCH (07:47)
[2023-05-25] MEDS: spironolactone 25 MG tablet PO SCH (07:48)
[2023-05-25] MEDS ORDERED: lactobacillus rhamnosus 10,000 MMU CELLS/CAPSULE PO SCH (08:00)
[2023-05-25] MEDS ORDERED: verapamil SR 180mg tablet PO SCH (08:00)
[2023-05-25] MEDS ORDERED: vitamin B comp w/Vit. C tab 1 TAB TABLET PO SCH (08:00)
[2023-05-25] MEDS ORDERED: cholecalciferol (vitamin D3) 1,000 unit (25mcg) tablet PO SCH (08:00)
[2023-05-25] MEDS ORDERED: UBIDECARENONE 300 MG PO SCH (08:00)
[2023-05-25] MEDS ORDERED: pantoprazole 40mg Tablet.DR PO SCH (08:00)
[2023-05-25 10:19] VITALS: BP 139/75; PULSE 65; RESP 12; TEMP 97.6; O2SAT 97
[2023-05-25] MEDS: HYDROcodone/acetaminophen 10/325mg tab PO PRN (13:20)
--- NOTE | 2023-05-25 14:05 | NUR ---
Report called to Stephanie HINES at [facility]. VS stable for transport.
== END 2023-05-25 14:00 | DRG 92 ==
LOC: UNDOADMIN 20:07 → ORTHO 4S 20:07 → UNDOADMIN 22:14 → ORTHO 4S 22:14
PROVIDERS: ADMIT Family Medicine; ATTEND Internal Medicine
DX: G99.2 Myelopathy in diseases classified elsewhere (principal); E87.1 Hypo-osmolality and hyponatremia; L03.115 Cellulitis of right lower limb; I50.32 Chronic diastolic (congestive) heart failure; N39.0 Urinary tract infection, site not specified; M48.02 Spinal stenosis, cervical region; E11.9 Type 2 diabetes mellitus without complications; I11.0 Hypertensive heart disease with heart failure; K21.9 Gastro-esophageal reflux disease without esophagitis; R91.1 Solitary pulmonary nodule; R26.9 Unspecified abnormalities of gait and mobility; E78.5 Hyperlipidemia, unspecified; G89.4 Chronic pain syndrome; Z82.49 Family history of ischemic heart disease and other diseases of the circulatory system; Z83.3 Family history of diabetes mellitus; Z87.891 Personal history of nicotine dependence; Z91.048 Other nonmedicinal substance allergy status; Z98.1 Arthrodesis status; Z79.899 Other long term (current) drug therapy
CPT/HCPCS: 36415; 80053; 82948; 83735; 83880; 84100; 84145; 85025; 85610; 85730; 87081; 97110; 97163; 97530; 97535; A6209; A6212; G0378; J0360; J1644; J1815; J2270; J2405; J7030; Q0177

== ENCOUNTER 2024-01-19 18:10 | Inpatient (IN) | payer MEDICARE ==
[~2024-01-19] VITALS: Ht 154.9 cm; Wt 68.6 kg
[~2024-01-19 18:10] MED LIST changes: +ACET325T59 PO; +BUPR2TAB11 SL; +CARV-50 PO; +DIPH25CA83 PO; +IBUP-1985 PO; +LACT1CAP26 PO; -LACT1CAP65 PO; -LANS30CA56 PO; -METO75TA PO; +ONDA-103 PO; +POTA8TAB69 PO; +SODI1TAB2 PO; +TEMA15CA5 PO
[2024-01-19] MEDS ORDERED: iohexol 350MG/ML 100ml bottle IV ONE (18:40)
[2024-01-19] MEDS: ringers solution, lacted 1,000 ML IV ONE ×2 (18:42→19:28)
[2024-01-19 19:28] LABS: BASOPHILS # (AUTO) 0.1 X10'3 (0-0.2); BASOPHILS % (AUTO) 0.5 % (0-1); EOSINOPHILS # (AUTO) 0.3 X10'3 (0-0.9); EOSINOPHILS % (AUTO) 1.7 % (0-6); HEMATOCRIT 31.8 % (35.0-45.0); HEMOGLOBIN 10.3 g/dl (12.0-16.0); LYMPHOCYTES # (AUTO) 2.3 X10'3 (1.1-4.8); LYMPHOCYTES % (AUTO) 14.6 % (21-51); MEAN CORPUSCULAR HEMOGLOBIN 28.8 PG (27.0-31.0); MEAN CORPUSCULAR HGB CONC 32.3 g/dL (33.0-36.5); MEAN PLATELET VOLUME 7.8 FL (7.4-10.4); MONOCYTES # (AUTO) 1.6 X10'3 (0-0.9); MONOCYTES % (AUTO) 10.3 % (2-12); NEUTROPHILS # (AUTO) 11.5 X10'3 (1.8-7.7); NEUTROPHILS % (AUTO) 72.9 % (42-75); PLATELET COUNT 327 X10'3 (140-440); RED BLOOD COUNT 3.58 X10'6 (4.20-5.60); RED CELL DISTRIBUTION WIDTH 16.3 % (11.5-14.5); WHITE BLOOD COUNT 15.8 X10'3 (4.5-11.0)
[2024-01-19 19:29] LABS: BILIRUBIN,URINE NEGATIVE (Neg); CLARITY,URINE CLOUDY (Clear); COLOR,URINE YELLOW (Yellow); GLUCOSE, URINE NEGATIVE (Neg); KETONES,URINE NEGATIVE (Neg); LEUKOCYTE ESTERASE ,URINE LARGE (Neg); NITRITES, URINE POSITIVE (Neg); OCCULT BLOOD,URINE NEGATIVE (Neg); PROTEIN,URINE TRACE mg/dl (Neg); UROBILINOGEN,URINE 0.2 E.U/dL (0.2-1.0)
[2024-01-19 19:35] LABS: APTT 31 SECONDS (22-32); INR 1.1 INR; PROTHROMBIN TIME 11.8 SECONDS (9.0-12.0)
[2024-01-19 19:38] LABS: ALBUMIN 2.6 G/DL (3.4-5.0); ANION GAP 8 (8-16); BLOOD UREA NITROGEN 27 MG/DL (7-18); BUN/CREATININE RATIO 17.1 (10.0-20.0); CALCIUM 8.5 MG/DL (8.5-10.1); CHLORIDE 96 MMOL/L (99-107); CREATININE 1.58 MG/DL (0.40-0.90); GLUCOSE 110 MG/DL (70-104); MAGNESIUM 2.1 MG/DL (1.5-2.4); POTASSIUM 4.3 MMOL/L (3.5-5.1); SODIUM 132 MMOL/L (135-145); TOTAL CARBON DIOXIDE 27.7 MMOL/L (24-32); eCRCL 25 ML/MIN; eGFR 32 ML/MIN
[2024-01-19 19:49] LABS: UA COLLECTION TYPE FOLEY CATH
[2024-01-19 19:50] LABS: WBC,URINE 20-30 /HPF (0-4)
[2024-01-19 19:51] LABS: AMORPHOUS PHOSPHATES 3+; BACTERIA,URINE 4+ /HPF (Neg); MUCUS STRANDS FEW /LPF (Neg); RBC,URINE 0-2 /HPF (0-2); RENAL CELLS, URINE FEW /HPF; SQUAMOUS EPITHELIAL CELL,UR FEW /LPF (FEW); TRANSITIONAL EPI CELLS,URINE FEW /HPF; WBC CLUMPS,URINE FEW /HPF (NEGATIVE)
[2024-01-19] MEDS: levoFLOXACIN-Levaquin 750MG/D5 150 ML IV STA (20:28)
[2024-01-19] MEDS ORDERED: magnesium hydroxide 30ml (MOM) UD suspension PO PRN (22:25)
[2024-01-19] MEDS ORDERED: magnesium Cl slow-release 64mg tablet PO PRN (22:25)
[2024-01-19] MEDS ORDERED: potassium Cl 40MEQ/1/2NS 520ml 520 ML IV PRN (22:25)
[2024-01-19] MEDS ORDERED: magnesium 4gm in 100ml NS 100 ML IV PRN (22:25)
[2024-01-19] MEDS ORDERED: potassium Cl 20 mEq SR tablet PO PRN ×2 (22:25)
[2024-01-19] MEDS ORDERED: mag hydrox/Alum hydrox/simeth 30ml oral suspension PO PRN (22:25)
[2024-01-19] MEDS ORDERED: ondansetron/PF 4mg/2ml inj IV PRN (22:25)
[2024-01-19] MEDS ORDERED: acetaminophen 325mg tablet PO PRN (22:25)
[2024-01-19] MEDS: normal saline 1000ml 1,000 ML IV SCH (22:41)
[2024-01-20] MEDS ORDERED: LOSA-415 PO (04:18)
[2024-01-20] MEDS: enoxaparin 40mg/0.4ml syringe SUBCUT SCH (08:02)
[2024-01-20 09:37] LABS: BASOPHILS % (AUTO) 0.1 % (0-1); EOSINOPHILS % (AUTO) 0.1 % (0-6); HEMATOCRIT 30.3 % (35.0-45.0); HEMOGLOBIN 9.9 g/dl (12.0-16.0); LYMPHOCYTES # (AUTO) 1.4 X10'3 (1.1-4.8); LYMPHOCYTES % (AUTO) 7.9 % (21-51); MEAN CORPUSCULAR HEMOGLOBIN 28.8 PG (27.0-31.0); MEAN CORPUSCULAR HGB CONC 32.8 g/dL (33.0-36.5); MEAN CORPUSCULAR VOLUME 87.7 FL (78-98); MEAN PLATELET VOLUME 7.5 FL (7.4-10.4); MONOCYTES % (AUTO) 5.7 % (2-12); NEUTROPHILS # (AUTO) 15.4 X10'3 (1.8-7.7); NEUTROPHILS % (AUTO) 86.2 % (42-75); PLATELET COUNT 318 X10'3 (140-440); RED BLOOD COUNT 3.45 X10'6 (4.20-5.60); RED CELL DISTRIBUTION WIDTH 15.8 % (11.5-14.5); WHITE BLOOD COUNT 17.9 X10'3 (4.5-11.0)
[2024-01-20 09:50] LABS: HEMOGLOBIN A1C 6.7 % (4.5-6.2)
[2024-01-20 09:58] LABS: ALANINE AMINOTRANSFERASE 10 U/L (12-78); ALBUMIN 2.6 G/DL (3.4-5.0); ALBUMIN/GLOBULIN RATIO 0.6 (1.1-1.5); ALKALINE PHOSPHATASE 108 IU/L (46-116); ANION GAP 7 (8-16); ASPARTATE AMINO TRANSFERASE 10 U/L (10-37); BILIRUBIN,TOTAL 0.6 MG/DL (0.1-1.0); BLOOD UREA NITROGEN 22 MG/DL (7-18); BUN/CREATININE RATIO 18.8 (10.0-20.0); CALCIUM 8.8 MG/DL (8.5-10.1); CHLORIDE 97 MMOL/L (99-107); CREATININE 1.17 MG/DL (0.40-0.90); GLUCOSE 82 MG/DL (70-104); POTASSIUM 4.3 MMOL/L (3.5-5.1); SODIUM 130 MMOL/L (135-145); TOTAL CARBON DIOXIDE 25.8 MMOL/L (24-32); eCRCL 33 ML/MIN; eGFR 46 ML/MIN
[2024-01-20] MEDS: baclofen 10mg tablet PO SCH (10:54)
[2024-01-20] MEDS: insulin Lispro (HumaLOG) vial - multi-dose SQ SCH ×2 (13:00→17:00)
[2024-01-20] MEDS ORDERED: DEXTROSE 15 GM of carb/4 tabs (each vial/BOTTLE has 4 tablets) PO PRN ×2 (13:00)
[2024-01-20] MEDS ORDERED: dextrose 50%-water 50ml dispensing syringe IV PRN ×2 (13:00)
[2024-01-20] MEDS ORDERED: glucagon, human recombinant 1mg kit SUBCUT PRN (13:00)
[2024-01-20] MEDS ORDERED: HYDROcodone/acetaminophen 5mg/325mg tablet PO PRN (13:05)
[2024-01-20] MEDS ORDERED: morphine 2 MG/ML inj. syringe IV PRN (13:05)
[2024-01-20] MEDS ORDERED: acetaminophen 325mg tablet PO PRN (13:40)
[2024-01-20] MEDS: pantoprazole 40 MG vial IV SCH (18:45)
[2024-01-20] MEDS: levoFLOXACIN-Levaquin 500mg/D5 100 ML IV SCH (20:41)
[2024-01-20] MEDS: temazepam 15mg capsule PO SCH (20:42)
[2024-01-20] MEDS: duloxetine 30mg CAPSULE.DR PO SCH (20:42)
[2024-01-20] MEDS: amitriptyline 50mg tablet PO SCH (20:42)
[2024-01-20] MEDS: insulin glargine (Lantus) pen - multi-dose SQ SCH (20:54)
[2024-01-21] VITALS (9 sets, daily range): BP systolic 102–163; BP diastolic 61–90; PULSE 75–108; RESP 15–18; TEMP 97.6–99.7; O2SAT 93–97
[2024-01-21 07:28] LABS: BASOPHILS # (AUTO) 0.1 X10'3 (0-0.2); BASOPHILS % (AUTO) 0.3 % (0-1); EOSINOPHILS % (AUTO) 0.2 % (0-6); HEMATOCRIT 30.7 % (35.0-45.0); HEMOGLOBIN 10.1 g/dl (12.0-16.0); LYMPHOCYTES # (AUTO) 1.7 X10'3 (1.1-4.8); LYMPHOCYTES % (AUTO) 9.5 % (21-51); MEAN CORPUSCULAR HEMOGLOBIN 28.7 PG (27.0-31.0); MEAN CORPUSCULAR HGB CONC 32.8 g/dL (33.0-36.5); MEAN CORPUSCULAR VOLUME 87.4 FL (78-98); MEAN PLATELET VOLUME 7.4 FL (7.4-10.4); MONOCYTES # (AUTO) 1.4 X10'3 (0-0.9); MONOCYTES % (AUTO) 7.5 % (2-12); NEUTROPHILS # (AUTO) 14.9 X10'3 (1.8-7.7); NEUTROPHILS % (AUTO) 82.5 % (42-75); PLATELET COUNT 295 X10'3 (140-440); RED BLOOD COUNT 3.51 X10'6 (4.20-5.60); RED CELL DISTRIBUTION WIDTH 15.6 % (11.5-14.5); WHITE BLOOD COUNT 18.1 X10'3 (4.5-11.0)
[2024-01-21 07:44] LABS: ALANINE AMINOTRANSFERASE 12 U/L (12-78); ALBUMIN 2.3 G/DL (3.4-5.0); ALBUMIN/GLOBULIN RATIO 0.5 (1.1-1.5); ALKALINE PHOSPHATASE 102 IU/L (46-116); ANION GAP 12 (8-16); ASPARTATE AMINO TRANSFERASE 22 U/L (10-37); BLOOD UREA NITROGEN 12 MG/DL (7-18); BUN/CREATININE RATIO 16.7 (10.0-20.0); CALCIUM 8.6 MG/DL (8.5-10.1); CHLORIDE 96 MMOL/L (99-107); CREATININE 0.72 MG/DL (0.40-0.90); GLUCOSE 76 MG/DL (70-104); SODIUM 131 MMOL/L (135-145); TOTAL CARBON DIOXIDE 23.5 MMOL/L (24-32); TOTAL PROTEIN 6.6 G/DL (6.4-8.2); eCRCL 54 ML/MIN; eGFR 80 ML/MIN
[2024-01-21] MEDS: losartan 25mg tablet PO SCH (08:00)
[2024-01-21] MEDS: verapamil SR 180mg tablet PO SCH (15:13)
[2024-01-21] MEDS: carVEDilol 12.5mg tablet PO SCH (15:13)
[2024-01-22 06:00] VITALS: BP 134/78; PULSE 78; RESP 15; TEMP 97.7; O2SAT 95
[2024-01-22 07:27] LABS: BASOPHILS % (AUTO) 0.4 % (0-1); EOSINOPHILS # (AUTO) 0.5 X10'3 (0-0.9); HEMATOCRIT 26.9 % (35.0-45.0); HEMOGLOBIN 8.8 g/dl (12.0-16.0); LYMPHOCYTES # (AUTO) 2.1 X10'3 (1.1-4.8); LYMPHOCYTES % (AUTO) 17.3 % (21-51); MEAN CORPUSCULAR HEMOGLOBIN 28.8 PG (27.0-31.0); MEAN CORPUSCULAR HGB CONC 32.9 g/dL (33.0-36.5); MEAN CORPUSCULAR VOLUME 87.4 FL (78-98); MEAN PLATELET VOLUME 7.5 FL (7.4-10.4); MONOCYTES % (AUTO) 8.5 % (2-12); NEUTROPHILS # (AUTO) 8.3 X10'3 (1.8-7.7); NEUTROPHILS % (AUTO) 69.8 % (42-75); PLATELET COUNT 296 X10'3 (140-440); RED BLOOD COUNT 3.08 X10'6 (4.20-5.60); RED CELL DISTRIBUTION WIDTH 15.4 % (11.5-14.5); WHITE BLOOD COUNT 11.9 X10'3 (4.5-11.0)
[2024-01-22 07:43] LABS: ALANINE AMINOTRANSFERASE 20 U/L (12-78); ALBUMIN/GLOBULIN RATIO 0.5 (1.1-1.5); ALKALINE PHOSPHATASE 84 IU/L (46-116); ANION GAP 7 (8-16); ASPARTATE AMINO TRANSFERASE 26 U/L (10-37); BILIRUBIN,TOTAL 0.6 MG/DL (0.1-1.0); BLOOD UREA NITROGEN 10 MG/DL (7-18); BUN/CREATININE RATIO 14.3 (10.0-20.0); CALCIUM 8.2 MG/DL (8.5-10.1); CHLORIDE 101 MMOL/L (99-107); GLUCOSE 77 MG/DL (70-104); POTASSIUM 3.8 MMOL/L (3.5-5.1); SODIUM 134 MMOL/L (135-145); TOTAL PROTEIN 6.2 G/DL (6.4-8.2); eCRCL 56 ML/MIN; eGFR 82 ML/MIN
[2024-01-22] MEDS ORDERED: LEVO-65 PO (09:47)
[2024-01-22 10:00] VITALS: BP 145/88; PULSE 89; RESP 18; TEMP 98.2; O2SAT 94
== END 2024-01-22 16:10 | disposition home or self-care (01) | DRG 698 ==
LOC: ER 18:11 → ED HOLD 22:30 → EDBEDREQ 01-20 23:03 → ORTHO 4S 01-21 00:43
PROVIDERS: ADMIT Internal Medicine Critical Care Medicine; ATTEND Internal Medicine
DX: T83.511A Infection and inflammatory reaction due to indwelling urethral catheter, initial encounter (principal); A41.9 Sepsis, unspecified organism; G93.41 Metabolic encephalopathy; N17.0 Acute kidney failure with tubular necrosis; R65.20 Severe sepsis without septic shock; E87.1 Hypo-osmolality and hyponatremia; G82.20 Paraplegia, unspecified; G47.00 Insomnia, unspecified; G89.4 Chronic pain syndrome; F41.9 Anxiety disorder, unspecified; F32.A Depression, unspecified; E78.00 Pure hypercholesterolemia, unspecified; I10 Essential (primary) hypertension; K21.9 Gastro-esophageal reflux disease without esophagitis; N28.9 Disorder of kidney and ureter, unspecified; E11.42 Type 2 diabetes mellitus with diabetic polyneuropathy; Z91.018 Allergy to other foods; Z88.1 Allergy status to other antibiotic agents; Z88.8 Allergy status to other drugs, medicaments and biological substances; Z91.048 Other nonmedicinal substance allergy status; Z79.4 Long term (current) use of insulin; Z79.899 Other long term (current) drug therapy; Z87.891 Personal history of nicotine dependence; Z74.01 Bed confinement status
CPT/HCPCS: 36415; 70450; 71045; 80048; 80053; 81001; 82948; 83036; 83605; 83735; 83930; 84145; 85025; 85610; 85651; 85730; 87040; 87077; 87081; 87088; 87186; 93005; 97110; 97161; 97530; 99291; A6212; A6213; C9113; G0378; J1650; J1815; J1956; J3490; J7030; J7120; Q9967

== ENCOUNTER 2025-01-10 13:10 | Inpatient (IN) | payer MEDICARE ==
[~2025-01-10] VITALS: Ht 160 cm; Wt 77.3 kg
[~2025-01-10 13:10] MED LIST changes: -DIPH25CA83 PO; -LACT1CAP26 PO; +LOSA-415 PO; -LOSA50TA64 PO
[2025-01-10 15:48] LABS: BASOPHILS % (AUTO) 0.2 % (0-1); EOSINOPHILS # (AUTO) 0.1 X10'3 (0-0.9); EOSINOPHILS % (AUTO) 0.5 % (0-6); HEMATOCRIT 29.6 % (35.0-45.0); HEMOGLOBIN 9.8 g/dl (12.0-16.0); LYMPHOCYTES # (AUTO) 2.3 X10'3 (1.1-4.8); LYMPHOCYTES % (AUTO) 12.2 % (21-51); MEAN CORPUSCULAR HEMOGLOBIN 29.2 PG (27.0-31.0); MEAN CORPUSCULAR HGB CONC 33.3 g/dL (33.0-36.5); MEAN CORPUSCULAR VOLUME 87.7 FL (78-98); MEAN PLATELET VOLUME 6.7 FL (7.4-10.4); MONOCYTES # (AUTO) 0.9 X10'3 (0-0.9); MONOCYTES % (AUTO) 4.5 % (2-12); NEUTROPHILS # (AUTO) 15.7 X10'3 (1.8-7.7); NEUTROPHILS % (AUTO) 82.6 % (42-75); PLATELET COUNT 365 X10'3 (140-440); RED BLOOD COUNT 3.37 X10'6 (4.20-5.60); RED CELL DISTRIBUTION WIDTH 17.2 % (11.5-14.5)
[2025-01-10 16:20] LABS: PRO BRAIN NATRIURETIC PEPTIDE 2140 PG/ML (0-125)
[2025-01-10 16:59] LABS: BILIRUBIN,URINE NEGATIVE (Neg); CLARITY,URINE CLOUDY (Clear); COLOR,URINE YELLOW (Yellow); GLUCOSE, URINE NEGATIVE (Neg); KETONES,URINE TRACE mg/dl (Neg); LEUKOCYTE ESTERASE ,URINE MODERATE (Neg); NITRITES, URINE NEGATIVE (Neg); OCCULT BLOOD,URINE TRACE-INTACT (Neg); PROTEIN,URINE TRACE mg/dl (Neg); UROBILINOGEN,URINE 0.2 E.U/dL (0.2-1.0)
[2025-01-10 17:10] LABS: UA COLLECTION TYPE FOLEY CATH
[2025-01-10] MEDS: baclofen 10mg tablet PO PRN (17:11)
[2025-01-10] MEDS: normal saline 1000ml 1,000 ML IV ONE ×2 (17:11→22:25)
[2025-01-10 17:12] LABS: WBC,URINE TNTC /HPF (0-4)
[2025-01-10] MEDS: levoFLOXACIN-Levaquin 750MG/D5 150 ML IV STA (17:12)
[2025-01-10 17:13] LABS: BACTERIA,URINE 4+ /HPF (Neg); MUCUS STRANDS FEW /LPF (Neg); SQUAMOUS EPITHELIAL CELL,UR FEW /LPF (FEW); TRANSITIONAL EPI CELLS,URINE FEW /HPF; WBC CLUMPS,URINE FEW /HPF (NEGATIVE)
[2025-01-10] MEDS ORDERED: HYDROcodone/acetaminophen 10/325mg tab PO PRN (17:15)
[2025-01-10] MEDS ORDERED: HYDROcodone/acetaminophen 5mg/325mg tablet PO PRN (17:15)
[2025-01-10] MEDS ORDERED: magnesium sulf-water 4G/100mL 100 ML IV PRN (17:15)
[2025-01-10] MEDS ORDERED: acetaminophen 325mg tablet PO PRN ×2 (17:15)
[2025-01-10] MEDS ORDERED: potassium Cl 40MEQ/1/2NS 520ml 520 ML IV PRN (17:15)
[2025-01-10] MEDS ORDERED: mag hydrox/Alum hydrox/simeth 30ml oral suspension PO PRN (17:15)
[2025-01-10] MEDS ORDERED: ondansetron/PF 4mg/2ml inj IV PRN (17:15)
[2025-01-10] MEDS ORDERED: magnesium Cl slow-release 64mg tablet PO PRN (17:15)
[2025-01-10] MEDS ORDERED: magnesium hydroxide 30ml (MOM) UD suspension PO PRN (17:15)
[2025-01-10] MEDS ORDERED: ondansetron 4mg rapidly disintigrating tab PO PRN (17:15)
[2025-01-10] MEDS ORDERED: magnesium sulf-water 2g/50mL 50 ML IV PRN (17:15)
[2025-01-10] MEDS ORDERED: potassium Cl 20 mEq SR tablet PO PRN ×2 (17:15)
[2025-01-10] MEDS ORDERED: hydrALAZINE 20mg/ml inj. IV PRN (17:20)
[2025-01-10 17:32] LABS: ALANINE AMINOTRANSFERASE 26 U/L (12-78); ALBUMIN 1.1 G/DL (3.4-5.0); ALBUMIN/GLOBULIN RATIO 0.3 (1.1-1.5); ALKALINE PHOSPHATASE 317 IU/L (46-116); ANION GAP 9 (8-16); ASPARTATE AMINO TRANSFERASE 60 U/L (10-37); BILIRUBIN,TOTAL 0.5 MG/DL (0.1-1.0); BLOOD UREA NITROGEN 22 MG/DL (7-18); BUN/CREATININE RATIO 28.2 (10.0-20.0); CALCIUM 7.7 MG/DL (8.5-10.1); CHLORIDE 86 MMOL/L (99-107); CREATININE 0.78 MG/DL (0.40-0.90); GLUCOSE 91 MG/DL (70-104); POTASSIUM 5.3 MMOL/L (3.5-5.1); TOTAL CARBON DIOXIDE 23.3 MMOL/L (24-32); TOTAL PROTEIN 5.3 G/DL (6.4-8.2); eCRCL 54 ML/MIN; eGFR 73 ML/MIN
[2025-01-10] MEDS: PERFLUTREN PROTEIN-A MICROSPHR (Optison) 0.22 MG/ML 3ML VIAL IV ONE (17:37)
[2025-01-10 17:49] LABS: SODIUM 118 MMOL/L (135-145)
[2025-01-10 18:26] LABS: HEMOGLOBIN A1C 5.6 % (4.5-6.2)
[2025-01-10] MEDS ORDERED: VANC125C19 PO (18:28)
[2025-01-10] MEDS ORDERED: VITAMIN D PO (18:28)
[2025-01-10] MEDS ORDERED: LANS30CA56 PO (18:28)
[2025-01-10 18:40] LABS: CHOL/HDL RATIO 3.6 (0.00-4.99); CHOLESTEROL 58 MG/DL (0-200); HDL CHOLESTEROL 16 MG/DL (35-60); LDL CHOLESTEROL 29 MG/DL (50-100); TRIGLYCERIDES 61 MG/DL (20-135)
[2025-01-10 19:04] VITALS: TEMP 97.2
[2025-01-10] MEDS ORDERED: glucagon, human recombinant 1mg kit SUBCUT PRN (19:05)
[2025-01-10] MEDS ORDERED: dextrose 50%-water 50ml dispensing syringe IV PRN ×2 (19:05)
[2025-01-10] MEDS ORDERED: DEXTROSE 15 GM of carb/4 tabs (each vial/BOTTLE has 4 tablets) PO PRN ×2 (19:05)
[2025-01-10 19:10] LABS: SODIUM,URINE RANDOM < 15 MEQ/L
[2025-01-10 19:24] LABS: OSMOLALITY 254 MOSM/K (280-300)
[2025-01-10] MEDS: normal saline 1000ml 1,000 ML IV SCH (19:32)
[2025-01-10] MEDS: K and/or MAG REPLACEMENT MC SCH (20:00)
[2025-01-10] MEDS: docusate sod 100mg capsule PO SCH (20:00)
[2025-01-10] MEDS: PATIROMER CALCIUM SORBITEX 8.4 GM POWD.PACK PO ONE (20:34)
[2025-01-10] MEDS: carvedilol 6.25mg tablet PO SCH (20:35)
[2025-01-10] MEDS: heparin, porcine 5000 units/ml vial SQ SCH (20:43)
[2025-01-10] MEDS ORDERED: INSULIN LISPRO 100 UNIT/ML INSULN.PEN MULTI-DOSE SQ SCH (21:00)
[2025-01-10 22:02] LABS: ANION GAP 5 (8-16); BLOOD UREA NITROGEN 20 MG/DL (7-18); BUN/CREATININE RATIO 27.8 (10.0-20.0); CALCIUM 7.3 MG/DL (8.5-10.1); CHLORIDE 89 MMOL/L (99-107); CREATINE KINASE 84 U/L (26-192); CREATININE 0.72 MG/DL (0.40-0.90); GLUCOSE 82 MG/DL (70-104); LACTATE DEHYDROGENASE 455 U/L (81-234); POTASSIUM 5.1 MMOL/L (3.5-5.1); TOTAL CARBON DIOXIDE 23.7 MMOL/L (24-32); URIC ACID 5.5 MG/DL (2.5-6.2); eCRCL 58 ML/MIN; eGFR 80 ML/MIN
[2025-01-10 22:06] LABS: SODIUM 118 MMOL/L (135-145)
[2025-01-10] MEDS: furosemide 10 MG/1 ML 10ml inj IV ONE (23:08)
[2025-01-10 23:36] VITALS: PULSE 99; RESP 16; O2SAT 91
[2025-01-11 01:15] LABS: BASOPHILS % (AUTO) 0.3 % (0-1); EOSINOPHILS # (AUTO) 0.1 X10'3 (0-0.9); EOSINOPHILS % (AUTO) 0.4 % (0-6); HEMATOCRIT 27.4 % (35.0-45.0); HEMOGLOBIN 9.4 g/dl (12.0-16.0); LYMPHOCYTES # (AUTO) 2.8 X10'3 (1.1-4.8); LYMPHOCYTES % (AUTO) 15.4 % (21-51); MEAN CORPUSCULAR HEMOGLOBIN 29.6 PG (27.0-31.0); MEAN CORPUSCULAR HGB CONC 34.3 g/dL (33.0-36.5); MEAN CORPUSCULAR VOLUME 86.2 FL (78-98); MEAN PLATELET VOLUME 6.6 FL (7.4-10.4); MONOCYTES # (AUTO) 0.8 X10'3 (0-0.9); MONOCYTES % (AUTO) 4.3 % (2-12); NEUTROPHILS # (AUTO) 14.3 X10'3 (1.8-7.7); NEUTROPHILS % (AUTO) 79.6 % (42-75); PLATELET COUNT 374 X10'3 (140-440); RED BLOOD COUNT 3.18 X10'6 (4.20-5.60); RED CELL DISTRIBUTION WIDTH 16.9 % (11.5-14.5); WHITE BLOOD COUNT 17.9 X10'3 (4.5-11.0)
[2025-01-11 01:26] LABS: ALANINE AMINOTRANSFERASE 24 U/L (12-78); ALBUMIN/GLOBULIN RATIO 0.3 (1.1-1.5); ALKALINE PHOSPHATASE 302 IU/L (46-116); ANION GAP 4 (8-16); ASPARTATE AMINO TRANSFERASE 51 U/L (10-37); BILIRUBIN,TOTAL 0.5 MG/DL (0.1-1.0); BLOOD UREA NITROGEN 18 MG/DL (7-18); BUN/CREATININE RATIO 26.1 (10.0-20.0); CALCIUM 7.1 MG/DL (8.5-10.1); CHLORIDE 89 MMOL/L (99-107); CREATININE 0.69 MG/DL (0.40-0.90); GLUCOSE 80 MG/DL (70-104); MAGNESIUM 1.6 MG/DL (1.5-2.4); POTASSIUM 4.4 MMOL/L (3.5-5.1); TOTAL CARBON DIOXIDE 26.2 MMOL/L (24-32); TOTAL PROTEIN 4.8 G/DL (6.4-8.2); eCRCL 61 ML/MIN; eGFR 84 ML/MIN
[2025-01-11 01:33] LABS: OSMOLALITY 252 MOSM/K (280-300)
[2025-01-11 01:36] LABS: SODIUM 119 MMOL/L (135-145)
[2025-01-11 03:26] VITALS: BP 121/81
[2025-01-11 03:58] VITALS: PULSE 117; RESP 17; O2SAT 92
[2025-01-11 05:21] LABS: ANION GAP 6 (8-16); BLOOD UREA NITROGEN 17 MG/DL (7-18); BUN/CREATININE RATIO 23.3 (10.0-20.0); CHLORIDE 90 MMOL/L (99-107); CREATININE 0.73 MG/DL (0.40-0.90); GLUCOSE 74 MG/DL (70-104); POTASSIUM 4.3 MMOL/L (3.5-5.1); TOTAL CARBON DIOXIDE 24.1 MMOL/L (24-32); eCRCL 58 ML/MIN; eGFR 78 ML/MIN
[2025-01-11 05:29] LABS: SODIUM 120 MMOL/L (135-145)
[2025-01-11] MEDS ORDERED: sodium chloride 1gm tablet PO ONE (05:40)
[2025-01-11] MEDS ORDERED: amLODIPine 5mg tablet PO SCH (08:00)
[2025-01-11] MEDS ORDERED: levoFLOXACIN-Levaquin 750MG/D5 150 ML IV SCH (08:00)
[2025-01-15 05:41] LABS: RENIN, PLASMA 0.814 ng/mL/hr (.)
[2025-01-19 17:19] LABS: ALDOSTERONE 7.2 ng/dL (.)
== END 2025-01-11 09:02 | DRG 871 ==
LOC: ER 13:10 → UNDOADMIN 17:17 → ED HOLD 17:17
PROVIDERS: ADMIT Nurse Practitioner Family; ATTEND Nurse Practitioner Family
PROC: 5A0935A Assistance with Respiratory Ventilation, Less than 24 Consecutive Hours, High Flow/Velocity Cannula (ICD-10-PCS; principal; 2025-01-11)
DX: A41.9 Sepsis, unspecified organism (principal); G93.41 Metabolic encephalopathy; J18.9 Pneumonia, unspecified organism; J96.01 Acute respiratory failure with hypoxia; E87.1 Hypo-osmolality and hyponatremia; N30.00 Acute cystitis without hematuria; I16.1 Hypertensive emergency; I46.2 Cardiac arrest due to underlying cardiac condition; R57.0 Cardiogenic shock; Z20.822 Contact with and (suspected) exposure to COVID-19; D64.9 Anemia, unspecified; I10 Essential (primary) hypertension; Z66 Do not resuscitate; E87.5 Hyperkalemia; R65.20 Severe sepsis without septic shock; E11.42 Type 2 diabetes mellitus with diabetic polyneuropathy; L89.159 Pressure ulcer of sacral region, unspecified stage; E78.00 Pure hypercholesterolemia, unspecified; K21.9 Gastro-esophageal reflux disease without esophagitis; Z91.018 Allergy to other foods; Z99.3 Dependence on wheelchair; Z86.74 Personal history of sudden cardiac arrest; Z88.1 Allergy status to other antibiotic agents; Z98.1 Arthrodesis status; Z88.8 Allergy status to other drugs, medicaments and biological substances; Z79.899 Other long term (current) drug therapy; Z91.09 Other allergy status, other than to drugs and biological substances; Z79.84 Long term (current) use of oral hypoglycemic drugs
CPT/HCPCS: 36415; 71045; 80048; 80053; 80061; 81001; 82088; 82550; 82948; 83010; 83036; 83605; 83615; 83735; 83880; 83930; 83935; 84100; 84133; 84145; 84244; 84300; 84550; 85025; 87040; 87077; 87088; 87186; 87502; 87503; 87811; 94760; 96374; 99291; A4615; A4620; A6213; G0378; J1644; J1815; J1938; J1956; J7030